=== PATIENT | male | born 1995 | race Hispanic/Latino ===

== ENCOUNTER 2024-06-19 22:08 | Emergency (ER) | payer BC ==
[2024-06-19] MEDS ORDERED: predniSONE 20 MG TAB ONE (22:24)
[2024-06-19] MEDS ORDERED: Cyclobenzaprine 10 MG TAB ONE (22:24)
== END 2024-06-19 23:43 | disposition home or self-care (01) ==
LOC: ERS 22:08
DX: M62.830 Muscle spasm of back (principal)
CPT/HCPCS: 99282; J7512